=== PATIENT | female | born 1965 | race Caucasian/White ===

== ENCOUNTER 2017-10-07 05:47 | Inpatient (IN) | payer OTHER ==
[2017-10-07] MEDS ORDERED: dilTIAZem HCL 50 MG/10 ML - 10 ML VIAL IVPUSH ONE (06:03)
[2017-10-07] MEDS ORDERED: dilTIAZem HCL 125 MG/25 ML - 25 ML VIAL ONE (06:04)
--- NOTE | 2017-10-07 06:06 | PDOC ---
History of Present Illness - History of Present Illness Initial Comments: 10/07/17 06:06 Ms. Jesus Alcantar is a 52 yo female w/ pmh of afib who presents via EMS after she woke up with palpitations and 10/10 chest pain earlier this morning. She called EMS who attempted to give cardizem in the field but was unable to obtain a line. Patient was given 10 IV in ED during evaluation. The patient denies shortness of breath, headache and dizziness. Denies fever, chills, nausea, vomit, diarrhea and constipation. Denies dysuria, frequency, urgency and hematuria. Allergies: NKDA <Baljit Talbert - Last Filed: 10/07/17 06:26> <Kelly Hogue - Last Filed: 10/07/17 07:04> - General Stated Complaint: PALPITATIONS Time Seen by Provider: 10/07/17 06:03 Past History <Baljit Talbert - Last Filed: 10/07/17 06:26> <Kelly Hogue - Last Filed: 10/07/17 07:04> - Past Medical History Allergies/Adverse Reactions: Allergies Allergy/AdvReac Type Severity Reaction Status Date / Time No Known Allergies Allergy Verified 10/07/17 06:29 Home Medications: Ambulatory Orders Unobtainable [Unobtainable] 10/07/17 Review of Systems - Review of Systems Comments:: 10/07/17 06:09 GENERAL/CONSTITUTIONAL: No fever or chills. No weakness. HEAD, EYES, EARS, NOSE AND THROAT: +Headache earlier today. No change in vision. No ear pain or discharge. No sore throat. CARDIOVASCULAR: +Midline chest pain as described without shortness of breath RESPIRATORY: No cough, wheezing, or hemoptysis. GASTROINTESTINAL: No nausea, vomiting, diarrhea or constipation. GENITOURINARY: No dysuria, frequency, or change in urination. MUSCULOSKELETAL: No joint or muscle swelling or pain. No neck or back pain. SKIN: No rash NEUROLOGIC: No vertigo, loss of consciousness, or change in strength/sensation. ENDOCRINE: No increased thirst. No abnormal weight change HEMATOLOGIC/LYMPHATIC: No anemia, easy bleeding, or history of blood clots. ALLERGIC/IMMUNOLOGIC: No hives or skin allergy. <Baljit Talbert - Last Filed: 10/07/17 06:26> *Physical Exam - Physical Exam Comments: 10/07/17 06:09 GENERAL: Awake, alert, and fully oriented, in no acute distress HEAD: No signs of trauma, normocephalic, atraumatic EYES: PERRLA, EOMI, sclera anicteric, conjunctiva clear ENT: Auricles normal inspection, hearing grossly normal, nares patent, oropharynx clear without exudates. Moist mucosa NECK: Normal ROM, supple, no lymphadenopathy, JVD, or masses LUNGS: +Cough appreciated, coarse left lung sounds, reproducible midline chest pain with palpation - speaks full sentences HEART: Regular rate and rhythm, normal S1 and S2, no murmurs, rubs or gallops, peripheral pulses normal and equal bilaterally. ABDOMEN: Soft, nontender, normoactive bowel sounds. No guarding, no rebound. No masses EXTREMITIES: Normal inspection, Normal range of motion, no edema. No clubbing or cyanosis. NEUROLOGICAL: Cranial nerves II through XII grossly intact. Normal speech, normal gait, no focal sensorimotor deficits SKIN: Warm, Dry, normal turgor, no rashes or lesions noted. <Baljit Talbert - Last Filed: 10/07/17 06:26> - Vital Signs Last Vital Signs Temp Pulse Resp BP Pulse Ox 97.8 F 85 21 126/82 100 10/07/17 05:48 10/07/17 06:57 10/07/17 06:57 10/07/17 06:57 10/07/17 06:57 <Kelly Hogue - Last Filed: 10/07/17 07:04> ED Treatment Course - LABORATORY CBC & Chemistry Diagram: 10/07/17 06:18 10/07/17 06:18 - ADDITIONAL ORDERS Additional order review: Laboratory Results 10/07/17 06:18 PT with INR 12.60 H INR 1.12 10/07/17 06:18 RBC 4.49 MCV 88.0 MCHC 34.3 RDW 12.6 MPV 9.6 Neutrophils % 80.3 Lymphocytes % 12.1 Monocytes % 6.0 Eosinophils % 1.2 Basophils % 0.4 - RADIOLOGY Radiology Studies Ordered: Category Date Time Status CHEST X-RAY PORTABLE* [RAD] Stat Radiology 10/07/17 06:05 Taken <Kelly Hogue - Last Filed: 10/07/17 07:04> Medical Decision Making - Medical Decision Making 10/07/17 06:26 Ms. Lee is a 52 yo female w/ known afib BIBA for chest pain with palpitations. Patient reports some relief from symptoms following 10mg IV Diltiazem. Cardiac workup begun. 10/07/17 06:52 Patient signed out to Dr. Wan for further evaluation. <Baljit Talbert - Last Filed: 10/07/17 06:26> *DC/Admit/Observation/Transfer <Baljit Talbert - Last Filed: 10/07/17 06:26> <Kelly Hogue - Last Filed: 10/07/17 07:04> Diagnosis at time of Disposition: Rapid atrial fibrillation
[2017-10-07 06:17] VITALS: BMI 25.6
[2017-10-07 06:31] LABS: BASO % 0.4 % (0-2.0); EOS % 1.2 % (0-4.5); HEMATOCRIT 39.5 % (32.4-45.2); HEMOGLOBIN 13.5 GM/dL (10.7-15.3); LYMPH % 12.1 % (8-40); MCH 30.2 pg (25.7-33.7); MCHC 34.3 g/dl (32.0-36.0); MEAN PLT VOLUME 9.6 fl (7.5-11.1); NEUT % 80.3 % (42.8-82.8); PLATELET COUNT 202 K/MM3 (134-434); RBC 4.49 M/mm3 (3.60-5.2); RDW 12.6 % (11.6-15.6); WHITE BLOOD COUNT 13.4 K/mm3 (4.0-10.0)
[2017-10-07] MEDS ORDERED: dilTIAZem HCL 60 MG TABLET (FP) PO ONE (06:58)
[2017-10-07 07:00] LABS: INR 1.12 (0.82-1.09); PROTHROMBIN TIME (PATIENT) 12.6 SEC (9.98-11.88)
[2017-10-07] MEDS ORDERED: dilTIAZem HCL 60 MG TABLET (FP) ONE (07:00)
[2017-10-07] MEDS ORDERED: ACETAMINOPHEN 1000 MG/100 ML VIAL (NON FORMULARY) IVPB ONE (07:03)
[2017-10-07] MEDS ORDERED: ACETAMINOPHEN INJECTION 100 ML IVPB ONE (07:04)
--- NOTE | 2017-10-07 07:06 | PDOC ---
Attending Attestation - Resident Resident Name: Baljit Talbert - ED Attending Attestation I have performed the following: I have examined & evaluated the patient, The case was reviewed & discussed with the resident, I agree w/resident's findings & plan - HPI HPI: 10/08/17 03:04 Pt comes with CP - Physicial Exam PE: 10/07/17 07:04 Pt comes with rapid atrial fibrillation. She has a hx of open heart surgery ,but she has no idea what it was for. Years ago and done in [place]. - Medical Decision Making 10/07/17 07:05 Pt was rate controlled in the ER with PO and IV diltiazem. She will be admitted to telemetry once her labs and CXR are back. Heart Score/ECG Review - Electrocardiogram EKG: Non specific repolarization disturbance (Pt has rapid afib pattern)
[2017-10-07 07:11] LABS: ALBUMIN 3.7 g/dl (3.4-5.0); ANION GAP 10 (8-16); BILIRUBIN,TOTAL 0.8 mg/dL (0.2-1.0); BLOOD UREA NITROGEN 12 mg/dL (7-18); CALCIUM 8.4 mg/dL (8.5-10.1); CHLORIDE 107 mmol/L (98-107); CO2 23 mmol/L (21-32); CREATININE 0.7 mg/dL (0.55-1.02); GLUCOSE,RANDOM 125 mg/dL (74-106); SGPT/ALT 52 U/L (12-78); SODIUM 140 mmol/L (136-145); TOT PROT 7.8 g/dl (6.4-8.2)
[2017-10-07 07:14] LABS: ALK PHOS 107 U/L (45-117)
[2017-10-07 07:19] LABS: POTASSIUM 4.4 mmol/L (3.5-5.1); SGOT/AST 34 U/L (15-37)
--- NOTE | 2017-10-07 07:25 | PDOC ---
*Physical Exam - Vital Signs Last Vital Signs Temp Pulse Resp BP Pulse Ox 100.0 F H 85 21 126/82 100 10/07/17 07:04 10/07/17 06:57 10/07/17 06:57 10/07/17 06:57 10/07/17 06:57 10/07/17 07:07 52 YOF with h/o known paroxysmal A-fib, thoracotomy, p/w CP, palpitations, given cardizem IV and PO on arrival to the ED. ED Treatment Course - LABORATORY CBC & Chemistry Diagram: 10/07/17 06:18 10/07/17 06:18 - ADDITIONAL ORDERS Additional order review: Laboratory Results 10/07/17 06:18 PT with INR 12.60 H INR 1.12 10/07/17 06:18 RBC 4.49 MCV 88.0 MCHC 34.3 RDW 12.6 MPV 9.6 Neutrophils % 80.3 Lymphocytes % 12.1 Monocytes % 6.0 Eosinophils % 1.2 Basophils % 0.4 Medical Decision Making - Medical Decision Making 10/07/17 08:15 Rectal temp was found to be 101.5 (notably while Ofirmev was 1/2 finished). Septic workup done, 1 L NS started (Pt states did not have fluids yet). HR 96 on monitor, possible flutter waves. Repeat EKG showed A-flutter. 10/07/17 08:58 Lactate is 2.3, CXR showing congestive changes but patient does not appear volume overloaded. *DC/Admit/Observation/Transfer Diagnosis at time of Disposition: Rapid atrial fibrillation Atrial flutter Qualifiers: Atrial flutter type: unspecified Qualified Code(s): I48.92 - Unspecified atrial flutter Sepsis Qualifiers: Sepsis type: sepsis due to unspecified organism Qualified Code(s): A41.9 - Sepsis, unspecified organism - Discharge Dispostion Condition at time of disposition: Guarded Admit: Yes - Referrals - Patient Instructions - Post Discharge Activity
[2017-10-07] MEDS ORDERED: SODIUM CHLORIDE 1,000 ML IV STA (07:36)
[2017-10-07 08:20] LABS: VENOUS PC02 34.4 mmHg (38-52); VENOUS PH 7.4 (7.32-7.42)
[2017-10-07 08:24] LABS: URINE APPEARANCE CLEAR; URINE BILIRUBIN NEGATIVE (NEGATIVE); URINE BLOOD NEGATIVE (NEGATIVE); URINE COLOR STRAW; URINE GLUCOSE (UA) NEGATIVE (NEGATIVE); URINE KETONE NEGATIVE (NEGATIVE); URINE NITRITE NEGATIVE (NEGATIVE); URINE PROTEIN NEGATIVE (NEGATIVE); URINE UROBILINOGEN NEGATIVE mg/dL (0.2-1.0)
[2017-10-07 08:33] LABS: INR 1.14 (0.82-1.09); PROTHROMBIN TIME (PATIENT) 12.9 SEC (9.98-11.88)
[2017-10-07 08:47] LABS: URINE LEUK ESTERASE 1+ (NEGATIVE)
[2017-10-07 08:49] LABS: EPI CELLS RARE /HPF (FEW); URINE MUCUS RARE
[2017-10-07] MEDS ORDERED: VANCOMYCIN 1 GRAM (PRE-DOCKED) 1,000 MG/250 ML BAG IVPB ONE ×2 (09:02→09:14)
[2017-10-07] MEDS ORDERED: PIPERACIL/TAZOB 3.375 GM 3.375 GM/50 ML PREMIX IVPB ONE (09:03)
[2017-10-07] MEDS ORDERED: PIPERACILLIN/TAZOB 3.375 GM 3.375 GM/50 ML BAG IVPB ONE (09:48)
[2017-10-07] MEDS ORDERED: ACETAMINOPHEN 325 MG TABLET (FP) PO PRN (11:51)
--- NOTE | 2017-10-07 12:04 | HP ---
CHIEF COMPLAINT: palpitations PCP: In the [facility] HISTORY OF PRESENT ILLNESS: This is a 52yo woman with PMH valve replacement 2015 at [place] who is visting from the DR that presented for care after experiencing palpitations and chest pain while asleep. She described the pain as a pounding rated 8/10. She denies dizziness, SOB, headaches, cough, fevers, abdominal pain, nausea or vomiting. ER course was notable for: (1) HR-158 (2) DIltiazem IV (3) Lactate 2.8/WBC13.4 Recent Travel: came from 08/12 PAST MEDICAL HISTORY: see HPI PAST SURGICAL HISTORY: see HPI Social History: Smoking: denies Alcohol: denies Drugs: denies Family History: does not know her family's medical history Allergies No Known Allergies Allergy (Verified 10/07/17 06:29) HOME MEDICATIONS: Home Medications Medication Instructions Recorded Unobtainable [Unobtainable] 10/07/17 REVIEW OF SYSTEMS CONSTITUTIONAL: Absent: fever, chills, diaphoresis, generalized weakness, malaise, loss of appetite, weight change HEENT: Absent: rhinorrhea, nasal congestion, throat pain, throat swelling, difficulty swallowing, mouth swelling, ear pain, eye pain, visual changes CARDIOVASCULAR: Present- chest pain, palpitations Absent: syncope, irregular heart rate, lightheadedness, peripheral edema RESPIRATORY: Absent: cough, shortness of breath, dyspnea with exertion, orthopnea, wheezing, stridor, hemoptysis GASTROINTESTINAL: Absent: abdominal pain, abdominal distension, nausea, vomiting, diarrhea, constipation, melena, hematochezia GENITOURINARY: Absent: dysuria, frequency, urgency, hesitancy, hematuria, flank pain, genital pain MUSCULOSKELETAL: Absent: myalgia, arthralgia, joint swelling, back pain, neck pain SKIN: Absent: rash, itching, pallor HEMATOLOGIC/IMMUNOLOGIC: Absent: easy bleeding, easy bruising, lymphadenopathy, frequent infections ENDOCRINE: Absent: unexplained weight gain, unexplained weight loss, heat intolerance, cold intolerance NEUROLOGIC: Absent: headache, focal weakness or paresthesias, dizziness, unsteady gait, seizure, mental status changes, bladder or bowel incontinence PSYCHIATRIC: Absent: anxiety, depression, suicidal or homicidal ideation, hallucinations. PHYSICAL EXAMINATION Vital Signs - 24 hr 10/07/17 10/07/17 10/07/17 05:48 06:05 06:57 Temperature 97.8 F Pulse Rate 159 H Pulse Rate [ 85 Left Radial] Respiratory 24 21 Rate Blood Pressure 134/101 Blood Pressure 121/90 126/82 [Left Arm] O2 Sat by Pulse 98 100 Oximetry (%) 10/07/17 10/07/17 07:04 10:57 Temperature 100.0 F H 99 F Pulse Rate Pulse Rate [ 82 Left Radial] Respiratory Rate Blood Pressure Blood Pressure 107/67 [Left Arm] O2 Sat by Pulse 100 Oximetry (%) GENERAL: Awake, alert, and fully oriented, in no acute distress. HEAD: Normal with no signs of trauma. EYES: Pupils equal, round and reactive to light, extraocular movements intact, sclera anicteric, conjunctiva clear. No lid lag. EARS, NOSE, THROAT: Ears normal, nares patent, oropharynx clear without exudates. Moist mucous membranes. NECK: Normal range of motion, supple without lymphadenopathy, JVD, or masses. LUNGS: Breath sounds equal, clear to auscultation bilaterally. No wheezes, and no crackles. No accessory muscle use. HEART: Regular rate and rhythm, normal S1 and S2 without murmur, rub or gallop. ABDOMEN: Soft, nontender, not distended, normoactive bowel sounds, no guarding, no rebound, no masses. No hepatomegaly or splenomegaly. MUSCULOSKELETAL: Normal range of motion at all joints. No bony deformities or tenderness. No CVA tenderness. UPPER EXTREMITIES: 2+ pulses, warm, well-perfused. No cyanosis. No clubbing. No peripheral edema. LOWER EXTREMITIES: 2+ pulses, warm, well-perfused. No calf tenderness. No peripheral edema. NEUROLOGICAL: Cranial nerves II-XII intact. Normal speech. Normal gait. PSYCHIATRIC: Cooperative. Good eye contact. Appropriate mood and affect. SKIN: Warm, dry, normal turgor, no rashes or lesions noted, normal capillary refill. Laboratory Results - last 24 hr 10/07/17 10/07/17 10/07/17 06:18 06:18 06:18 WBC 13.4 H RBC 4.49 Hgb 13.5 Hct 39.5 MCV 88.0 MCH 30.2 MCHC 34.3 RDW 12.6 Plt Count 202 MPV 9.6 Neutrophils % 80.3 Lymphocytes % 12.1 Monocytes % 6.0 Eosinophils % 1.2 Basophils % 0.4 PT with INR INR PTT (Actin FS) 29.4 VBG pH POC VBG pCO2 POC VBG pO2 Mixed VBG HCO3 Sodium 140 Potassium 4.4 Chloride 107 Carbon Dioxide 23 Anion Gap 10 BUN 12 Creatinine 0.7 Creat Clearance w eGFR > 60 Random Glucose 125 H Lactic Acid Calcium 8.4 L Total Bilirubin 0.8 AST 34 ALT 52 Alkaline Phosphatase 107 Creatine Kinase 103 Troponin I < 0.02 B-Natriuretic Peptide Total Protein 7.8 Albumin 3.7 Urine Color Urine Appearance Urine pH Ur Specific [place] Urine Protein Urine Glucose (UA) Urine Ketones Urine Blood Urine Nitrite Urine Bilirubin Urine Urobilinogen Ur Leukocyte Esterase Urine WBC (Auto) Urine RBC (Auto) Ur Epithelial Cells Urine Mucus Blood Type Antibody Screen 10/07/17 10/07/17 10/07/17 06:18 06:18 08:00 WBC RBC Hgb Hct MCV MCH MCHC RDW Plt Count MPV Neutrophils % Lymphocytes % Monocytes % Eosinophils % Basophils % PT with INR 12.60 H 12.90 H INR 1.12 1.14 PTT (Actin FS) VBG pH POC VBG pCO2 POC VBG pO2 Mixed VBG HCO3 Sodium Potassium Chloride Carbon Dioxide Anion Gap BUN Creatinine Creat Clearance w eGFR Random Glucose Lactic Acid Calcium Total Bilirubin AST ALT Alkaline Phosphatase Creatine Kinase Troponin I B-Natriuretic Peptide 2048.66 H Total Protein Albumin Urine Color Urine Appearance Urine pH Ur Specific [place] Urine Protein Urine Glucose (UA) Urine Ketones Urine Blood Urine Nitrite Urine Bilirubin Urine Urobilinogen Ur Leukocyte Esterase Urine WBC (Auto) Urine RBC (Auto) Ur Epithelial Cells Urine Mucus Blood Type Antibody Screen 10/07/17 10/07/17 10/07/17 08:00 08:00 08:10 WBC RBC Hgb Hct MCV MCH MCHC RDW Plt Count MPV Neutrophils % Lymphocytes % Monocytes % Eosinophils % Basophils % PT with INR INR PTT (Actin FS) VBG pH 7.40 POC VBG pCO2 34.4 L POC VBG pO2 68.0 H Mixed VBG HCO3 20.7 Sodium Potassium Chloride Carbon Dioxide Anion Gap BUN Creatinine Creat Clearance w eGFR Random Glucose Lactic Acid Calcium Total Bilirubin AST ALT Alkaline Phosphatase Creatine Kinase Troponin I B-Natriuretic Peptide Total Protein Albumin Urine Color Straw Urine Appearance Clear Urine pH 5.0 Ur Specific [place] 1.009 Urine Protein Negative Urine Glucose (UA) Negative Urine Ketones Negative Urine Blood Negative Urine Nitrite Negative Urine Bilirubin Negative Urine Urobilinogen Negative Ur Leukocyte Esterase 1+ H Urine WBC (Auto) 2 Urine RBC (Auto) 1 Ur Epithelial Cells Rare Urine Mucus Rare Blood Type A NEGATIVE Antibody Screen Negative 10/07/17 10/07/17 08:10 10:00 WBC RBC Hgb Hct MCV MCH MCHC RDW Plt Count MPV Neutrophils % Lymphocytes % Monocytes % Eosinophils % Basophils % PT with INR INR PTT (Actin FS) VBG pH POC VBG pCO2 POC VBG pO2 Mixed VBG HCO3 Sodium Potassium Chloride Carbon Dioxide Anion Gap BUN Creatinine Creat Clearance w eGFR Random Glucose Lactic Acid 2.3 H* 1.7 Calcium Total Bilirubin AST ALT Alkaline Phosphatase Creatine Kinase Troponin I B-Natriuretic Peptide Total Protein Albumin Urine Color Urine Appearance Urine pH Ur Specific [place] Urine Protein Urine Glucose (UA) Urine Ketones Urine Blood Urine Nitrite Urine Bilirubin Urine Urobilinogen Ur Leukocyte Esterase Urine WBC (Auto) Urine RBC (Auto) Ur Epithelial Cells Urine Mucus Blood Type Antibody Screen ASSESSMENT/PLAN: A: 52 yo woman with PMH valve replacement now with new onset aflutter, P: aflutter - cardizem cd 120 - Lovenox 60mg daily - cards consult - telemetry - Diltiazem IV prn- rate control Chest pain - r/o ACS - ASA - telemetry - trend troponins - am lipid panel - Cards Consult Leukocytosis - likely reactive - monitor off abx - influenza testing pending - urine antigens F/E/N - Low Na diet - replete prn PPX - OOB - Lovenox Dispo- requires observation of acute medical condition Visit type - Emergency Visit Emergency Visit: Yes ED Registration Date: 10/07/17 Care time: The patient presented to the Emergency Department on the above date and was hospitalized for further evaluation of their emergent condition. - New Patient This patient is new to me today: Yes Date on this admission: 10/09/17 - Critical Care Critical Care patient: No
--- NOTE | 2017-10-07 16:52 | EKG ---
Test Reason : Blood Pressure : / mmHG Vent. Rate : 106 BPM Atrial Rate : 394 BPM P-R Int : 000 ms QRS Dur : 074 ms QT Int : 356 ms P-R-T Axes : 000 072 -70 degrees QTc Int : 472 ms ATRIAL FLUTTER WITH VARIABLE A-V BLOCK ABNORMAL ECG NO PREVIOUS ECGS AVAILABLE Confirmed by SHELBY FINN, ANDRAE ([id number]) on 10/07/2017 4:52:18 PM Referred By: Confirmed By:ANDRAE RYAN MD
[2017-10-07] MEDS ORDERED: ENOXAPARIN NA (PORCINE) 60 MG/0.6 ML DISP.SYRIN SQ ONE (21:02)
[2017-10-07] MEDS: ENOXAPARIN NA (PORCINE) 60 MG/0.6 ML DISP.SYRIN SQ SCH (21:11)
[2017-10-07] MEDS ORDERED: HEPARIN NA (PORCINE) 5,000 UNITS/ML 1ML VIAL SQ SCH (22:00)
[2017-10-08 06:55] LABS: BASO % 0.7 % (0-2.0); EOS % 4.7 % (0-4.5); HEMATOCRIT 35.7 % (32.4-45.2); HEMOGLOBIN 12.2 GM/dL (10.7-15.3); LYMPH % 28.4 % (8-40); MCH 30.4 pg (25.7-33.7); MCHC 34.3 g/dl (32.0-36.0); MEAN CELL VOLUME 88.6 fl (80-96); MEAN PLT VOLUME 9.6 fl (7.5-11.1); NEUT % 57.2 % (42.8-82.8); PLATELET COUNT 170 K/MM3 (134-434); RBC 4.03 M/mm3 (3.60-5.2); RDW 12.6 % (11.6-15.6); WHITE BLOOD COUNT 7.8 K/mm3 (4.0-10.0)
[2017-10-08 07:18] LABS: ALBUMIN 3.3 g/dl (3.4-5.0); ANION GAP 8 (8-16); BLOOD UREA NITROGEN 10 mg/dL (7-18); CALCIUM 7.9 mg/dL (8.5-10.1); CHLORIDE 108 mmol/L (98-107); CO2 25 mmol/L (21-32); GLUCOSE,RANDOM 97 mg/dL (74-106); POTASSIUM 3.8 mmol/L (3.5-5.1); SODIUM 141 mmol/L (136-145)
[2017-10-08 07:21] LABS: ALK PHOS 90 U/L (45-117); BILIRUBIN,TOTAL 0.8 mg/dL (0.2-1.0); CHOLESTEROL 157 mg/dL (50-200); CREATININE 0.7 mg/dL (0.55-1.02); HDL CHOLESTEROL 35 mg/dL (40-60); LDL CHOLESTEROL (ONLY SJRH) 114 mg/dL (5-100); SGOT/AST 18 U/L (15-37); SGPT/ALT 38 U/L (12-78); TOT PROT 6.8 g/dl (6.4-8.2); TRIGLYCERIDES 106 mg/dL (35-160)
[2017-10-08] MEDS ORDERED: ASPIRIN COATED 81 MG TABLET.EC PO SCH (10:00)
[2017-10-08] MEDS: ENOXAPARIN NA (PORCINE) 60 MG/0.6 ML DISP.SYRIN SQ SCH (10:13)
--- NOTE | 2017-10-08 12:42 | CON.CARD ---
Consult Consult Specialty:: Cardiology Referred by:: Hospitalist Reason for Consultation:: Cardiac evaluation - History of Present Illness Chief Complaint: Palpitation and chest pain History of Present Illness: Patient is a 52 year old female of descent with underlying history of open heart surgery last year (patient states valvular surgery at a hospital in [place], but could not specify) who presents with palpitations and chest pain. ECG demonstrates atrial fibrillation with variable ventricular response. She denies shortness of breath. She denies paroxysmal nocturnal dyspnea or orthopnea. She denies fever or chills. She denies headache or lightheadedness. She also states history of hypertension for which she takes medication, but also could not specify the name of the mediation. Medical record indicates Digoxin as her home medication. - History Source History Provided By: Patient, Medical Record Limitations to Obtaining History: Poor Historian - Past Medical History Cardio/Vascular: Yes: HTN, Other (Valvular heart disease) Endocrine: No: Diabetes Mellitus - Past Surgical History Past Surgical History: Yes: Valve Replacement - Alcohol/Substance Use Hx Alcohol Use: No History of Substance Use: reports: None - Smoking History Smoking history: Never smoked Have you smoked in the past 12 months: No Home Medications - Allergies Allergies/Adverse Reactions: Allergies Allergy/AdvReac Type Severity Reaction Status Date / Time No Known Allergies Allergy Verified 10/07/17 06:29 - Home Medications Home Medications: Ambulatory Orders Digoxin [Lanoxin -] 0.25 mg PO BID 10/07/17 Family Disease History - Family Disease History Family History: Denies Review of Systems - Review of Systems Constitutional: denies: Chills, Fever Cardiovascular: reports: Chest Pain, Palpitations. denies: Shortness of Breath Respiratory: denies: Cough, Hemoptysis, Orthopnea, PND, SOB, SOB on Exertion, Wheezing Gastrointestinal: denies: Abdominal Pain, Constipation, Diarrhea, Melena, Nausea , Rectal Bleeding, Vomiting Genitourinary: denies: Dysuria, Hematuria Neurological: denies: Dizziness, Headache, Seizure, Syncope Vital Signs: Vital Signs Temperature 98.2 F 10/08/17 09:40 Pulse Rate 107 H 10/08/17 10:18 Respiratory Rate 20 10/08/17 10:18 Blood Pressure 115/92 10/08/17 10:18 O2 Sat by Pulse Oximetry (%) 99 10/08/17 10:18 Eyes: Yes: PERRL HENT: Yes: Atraumatic Neck: Yes: Supple Respiratory: Yes: CTA Bilaterally Gastrointestinal: Yes: Normal Bowel Sounds, Soft. No: Tenderness Cardiovascular: Yes: Tachycardia, Pulse Irregular JVD: No Carotid Bruit: No Heart Sounds: Yes: S1, S2. No: Gallop Murmur: Yes: Systolic Murmur, Grade 1 Edema: No - Other Data Labs, Other Data: CBC, BMP 10/08/17 05:50 10/08/17 05:50 INR, PTT INR 1.14 (0.82-1.09) 10/07/17 08:00 Troponin, BNP 10/07/17 10/07/17 17:55 23:20 Troponin I 0.03 0.02 Laboratory Results - last 24 hr 10/08/17 10/08/17 05:50 05:50 WBC 7.8 D RBC 4.03 Hgb 12.2 Hct 35.7 MCV 88.6 MCH 30.4 MCHC 34.3 RDW 12.6 Plt Count 170 MPV 9.6 Neutrophils % 57.2 D Lymphocytes % 28.4 D Monocytes % 9.0 Eosinophils % 4.7 H D Basophils % 0.7 Sodium 141 Potassium 3.8 Chloride 108 H Carbon Dioxide 25 Anion Gap 8 BUN 10 Creatinine 0.7 Creat Clearance w eGFR > 60 Random Glucose 97 Calcium 7.9 L Total Bilirubin 0.8 AST 18 ALT 38 Alkaline Phosphatase 90 Total Protein 6.8 Albumin 3.3 L Triglycerides 106 Cholesterol 157 Total LDL Cholesterol 114 H HDL Cholesterol 35 L Atrial flutter with rapid ventricular response Echo: Report Reviewed Imaging - Results Chest X-ray: Report Reviewed (Large heart) EKG: Report Reviewed Problem List - Problems (1) Bioprosthetic mitral valve replacement, current hospitalization Code(s): Z95.3 - PRESENCE OF XENOGENIC HEART VALVE (2) HTN (hypertension) Code(s): I10 - ESSENTIAL (PRIMARY) HYPERTENSION Qualifiers: Hypertension type: essential hypertension Qualified Code(s): I10 - Essential (primary) hypertension (3) Hypercholesterolemia Code(s): E78.00 - PURE HYPERCHOLESTEROLEMIA, UNSPECIFIED (4) Tricuspid valve regurgitation Code(s): I07.1 - RHEUMATIC TRICUSPID INSUFFICIENCY Qualifiers: Cardiac valve disease etiology: nonrheumatic Qualified Code(s): I36.1 - Nonrheumatic tricuspid (valve) insufficiency (5) Atrial flutter Code(s): I48.92 - UNSPECIFIED ATRIAL FLUTTER Qualifiers: Atrial flutter type: unspecified Qualified Code(s): I48.92 - Unspecified atrial flutter Assessment/Plan Echocardiography (10/08/17): Normal LV systolic function, bioprosthetic mitral valve with normal function and well seated, mild MR, severe LA dilatation ( correction in report - LA volume index 56 ml/m2), moderate RA dilatation, moderate to severe TR 1. Atrial flutter with RVR, unknown duration 2. Post bioprosthetic MVR with mild mitral valve regurgitation 3. History of hypertension 4. Tricuspid valve regurgitation 5. Hypercholesterolemia PLAN: 1. Switch Lovenox to unfractionated Heparin and then she will need to be started on Coumadin therapy (keep INR 2-3). Discontinue ASA 2. Switch Cardizem to Metoprolol Tartrate and up-titrate. 3. Continue Atorvastatin 4. Consider synchronized cardioversion with MARIE once initiated on anticoagulation 5. Trend troponins 6. Transthoracic echocardiography reviewed as outlined above Further plans are to follow Noah Mccoy MD
--- NOTE | 2017-10-08 18:57 | PN ---
Physical Exam: SUBJECTIVE: Patient seen and examined. Denies chest pain, denies shortness of breath. OBJECTIVE: No chest pain Heart rate irregular 70s on clinical research monitor In no acute distress, appears more comfortable does not remember her past heart surgery, but it was done years ago in [place] , does not remember which hospital Vital Signs Period Temp Pulse Resp BP Sys/Paul Pulse Ox Last 24 Hr 98.2 F-99.6 F 82-107 16-20 94-139/58-92 97-100 GENERAL: The patient is awake, alert, and fully oriented, in no acute distress. HEAD: Normal with no signs of trauma. EYES: PERRL, extraocular movements intact, sclera anicteric, conjunctiva clear. No ptosis. ENT: Ears normal, nares patent, oropharynx clear without exudates, moist mucous membranes. NECK: Trachea midline, full range of motion, supple. LUNGS: Breath sounds equal, clear to auscultation bilaterally, no wheezes, no crackles, no accessory muscle use. HEART: previous surgery done about 1 year ago, large scar on anterior chest ABDOMEN: Soft, nontender, nondistended, normoactive bowel sounds, no guarding, no rebound, no hepatosplenomegaly, no masses. EXTREMITIES: 2+ pulses, warm, well-perfused, no edema. NEUROLOGICAL: Normal speech, gait not observed. Laboratory Results - last 24 hr 10/07/17 10/08/17 10/08/17 23:20 05:50 05:50 WBC 7.8 D RBC 4.03 Hgb 12.2 Hct 35.7 MCV 88.6 MCH 30.4 MCHC 34.3 RDW 12.6 Plt Count 170 MPV 9.6 Neutrophils % 57.2 D Lymphocytes % 28.4 D Monocytes % 9.0 Eosinophils % 4.7 H D Basophils % 0.7 Sodium 141 Potassium 3.8 Chloride 108 H Carbon Dioxide 25 Anion Gap 8 BUN 10 Creatinine 0.7 Creat Clearance w eGFR > 60 Random Glucose 97 Calcium 7.9 L Total Bilirubin 0.8 AST 18 ALT 38 Alkaline Phosphatase 90 Creatine Kinase 66 Troponin I 0.02 Total Protein 6.8 Albumin 3.3 L Triglycerides 106 Cholesterol 157 Total LDL Cholesterol 114 H HDL Cholesterol 35 L Active Medications Generic Name Dose Route Start Last Admin Trade Name Freq PRN Reason Stop Dose Admin Acetaminophen 650 mg 10/07/17 11:51 Tylenol - PO Q4H PRN PAIN OR FEVER Aspirin 81 mg 10/08/17 10:00 10/08/17 10:13 Ecotrin - PO 81 mg DAILY [facility]RY[facility] Administration Diltiazem HCl 120 mg 10/08/17 10:00 10/08/17 10:13 Cardizem Cd - PO 120 mg DAILY [facility] Administration Enoxaparin Sodium 60 mg 10/07/17 20:45 10/08/17 10:13 Lovenox - SQ 60 mg DAILY KRY[facility]AL Administration ASSESSMENT/PLAN: Patient is a 52 year old female with a significant past medical history of paroxysmal afib, thoracotomy, palpitations, recent cardiac surgery. She presents to the ED on 10/07/2017 with complaints of chest pain and palpitations. In the ED she was found to be in rapid atrial fibrillation and was given cardizem IV and PO on arrival to the ED. The patient denies shortness of breath, headache and dizziness. Denies fever, chills, nausea, vomiting, diarrhea and constipation. Imaging: Echo:LV normal, left vent.fx normal, Left atrium severely dilated, RA moderately dilated, There is a bio prostetic mitral valve. The prosthetic mitral valve is well seated. The prosthetic mitral valve appears to open well. There is mild mitral regurgitation. There is moderate to severe tricuspid regurgitation. EKG:atrial flutter with variable av block, no previous EKGs to compare Cardiology Chest pain/Rule out ACS Monitor on tele Trops negative x 3 Monitor for chest pain, shortness of breath Obtain more history from family regarding recent heart surgery if patient permits Echo shows a prostethic mitral valve EKG reviewed Cardiology following Prox. Atril Fib, chronig On Cardizem 120mg daily Anticoag as per cardiology ASA 81mg daily TSH pending Hyperlipidemia, acute Lipid panel reviewed Started on Lipitor 20mg @ hs Lactic acidosis, resolved Leukocytosis, resolved Monitor for feves Blood cultures pending F.E.N. Fluids: PO intake adequate Electrolytes: monitor Nutrition: low sodium Prophylaxis: DVT: Lovenox GI: deferred Disposition: full code. On discharge, patient will need cardiology follow up and a new PCP referral. Visit type - Emergency Visit Emergency Visit: Yes ED Registration Date: 10/07/17 Care time: The patient presented to the Emergency Department on the above date and was hospitalized for further evaluation of their emergent condition. - New Patient This patient is new to me today: Yes Date on this admission: 10/08/17 - Critical Care Critical Care patient: No - Discharge Referral Referred to [facility] Med P.C.: No
[2017-10-08] MEDS: ATORVASTATIN CA 20 MG TABLET (FP) PO SCH (21:43)
--- NOTE | 2017-10-08 23:32 | EKG ---
Test Reason : Blood Pressure : / mmHG Vent. Rate : 153 BPM Atrial Rate : 178 BPM P-R Int : 000 ms QRS Dur : 070 ms QT Int : 262 ms P-R-T Axes : 000 076 254 degrees QTc Int : 418 ms ATRIAL FIBRILLATION WITH RAPID VENTRICULAR RESPONSE ABNORMAL ECG NO PREVIOUS ECGS AVAILABLE Confirmed by EZEQUIEL IRVING MD ([id number]) on 10/08/2017 11:32:07 PM Referred By: Confirmed By:EZEQUIEL IRVING MD
[2017-10-09] MEDS ORDERED: HEPARIN NA (PORCINE) 5,000 UNITS/ML 1ML VIAL IVPUSH PRN ×2 (01:23)
[2017-10-09] MEDS: HEPARIN INFUSION - 25,000 UNITS/500 ML INFUS.BAG IVPB SCH (04:33)
[2017-10-09 07:17] LABS: BASO % 0.6 % (0-2.0); EOS % 3.9 % (0-4.5); HEMATOCRIT 38.3 % (32.4-45.2); HEMOGLOBIN 13.1 GM/dL (10.7-15.3); LYMPH % 23.4 % (8-40); MCHC 34.3 g/dl (32.0-36.0); MEAN CELL VOLUME 87.4 fl (80-96); MEAN PLT VOLUME 9.5 fl (7.5-11.1); MONO % 11.2 % (3.8-10.2); NEUT % 60.9 % (42.8-82.8); PLATELET COUNT 201 K/MM3 (134-434); RBC 4.38 M/mm3 (3.60-5.2); RDW 12.6 % (11.6-15.6); WHITE BLOOD COUNT 7.3 K/mm3 (4.0-10.0)
[2017-10-09 07:45] LABS: CHLORIDE 108 mmol/L (98-107); POTASSIUM 3.8 mmol/L (3.5-5.1); SODIUM 138 mmol/L (136-145)
[2017-10-09 08:01] LABS: ALBUMIN 3.4 g/dl (3.4-5.0); ALK PHOS 92 U/L (45-117); ANION GAP 6 (8-16); BILIRUBIN,TOTAL 1.1 mg/dL (0.2-1.0); BLOOD UREA NITROGEN 9 mg/dL (7-18); CALCIUM 8.2 mg/dL (8.5-10.1); CO2 24 mmol/L (21-32); CREATININE 0.7 mg/dL (0.55-1.02); GLUCOSE,RANDOM 113 mg/dL (74-106); MAGNESIUM 2.1 mg/dL (1.8-2.4); SGOT/AST 19 U/L (15-37); SGPT/ALT 35 U/L (12-78); TOT PROT 7.2 g/dl (6.4-8.2)
--- NOTE | 2017-10-09 09:02 | PN ---
Progress Note, Physician History of Present Illness: Palpitations and chest pain resolved with rate-control, denies dyspnea, placed on heparin gtt. - Current Medication List Current Medications: Active Medications Acetaminophen (Tylenol -) 650 mg PO Q4H PRN PRN Reason: PAIN OR FEVER Last Admin: 10/08/17 21:43 Dose: 650 mg Aspirin (Ecotrin -) 81 mg PO DAILY [facility] Last Admin: 10/08/17 10:13 Dose: 81 mg Atorvastatin Calcium (Lipitor -) 20 mg PO HS [facility] Last Admin: 10/08/17 21:43 Dose: 20 mg Heparin Sodium (Porcine) (Heparin -) 1,000 unit IVPUSH PRN PRN PRN Reason: Heparin Heparin Sodium (Porcine) (Heparin -) 5,000 unit IVPUSH PRN PRN PRN Reason: Heparin Heparin Sodium/Dextrose (Heparin Infusion -) 25,000 units in 500 mls @ 20 mls/ hr IVPB TITR KRYSTAL; 1,000 UNITS/HR PRN Reason: Protocol Last Admin: 10/09/17 04:33 Dose: 1,000 units/hr, 20 mls/hr Metoprolol Tartrate (Lopressor -) 50 mg PO BID [facility] - Objective Vital Signs: Vital Signs Temperature 98.4 F 10/09/17 06:31 Pulse Rate 85 10/09/17 06:31 Respiratory Rate 18 10/09/17 06:31 Blood Pressure 112/64 10/09/17 06:31 O2 Sat by Pulse Oximetry (%) 98 10/08/17 21:00 Constitutional: Yes: No Distress, Calm, Thin Neck: Yes: Supple Cardiovascular: Yes: Tachycardia, Pulse Irregular, Murmur (2/6 SM) Respiratory: Yes: Regular, CTA Bilaterally Gastrointestinal: Yes: Normal Bowel Sounds, Soft Edema: No Labs: CBC, BMP 10/09/17 06:41 10/09/17 06:41 INR, PTT INR 1.14 (0.82-1.09) 10/07/17 08:00 - ....Imaging EKG: Report Reviewed (Afib with RVR) Problem List - Problems (1) Rheumatic heart disease Code(s): I09.9 - RHEUMATIC HEART DISEASE, UNSPECIFIED (2) Atrial flutter Code(s): I48.92 - UNSPECIFIED ATRIAL FLUTTER Qualifiers: Atrial flutter type: unspecified Qualified Code(s): I48.92 - Unspecified atrial flutter (3) Bioprosthetic mitral valve replacement, current hospitalization Code(s): Z95.3 - PRESENCE OF XENOGENIC HEART VALVE (4) HTN (hypertension) Code(s): I10 - ESSENTIAL (PRIMARY) HYPERTENSION Qualifiers: Hypertension type: essential hypertension Qualified Code(s): I10 - Essential (primary) hypertension (5) Hypercholesterolemia Code(s): E78.00 - PURE HYPERCHOLESTEROLEMIA, UNSPECIFIED (6) Rapid atrial fibrillation Code(s): I48.91 - UNSPECIFIED ATRIAL FIBRILLATION (7) Tricuspid valve regurgitation Code(s): I07.1 - RHEUMATIC TRICUSPID INSUFFICIENCY Qualifiers: Cardiac valve disease etiology: rheumatic Qualified Code(s): I07.1 - Rheumatic tricuspid insufficiency Assessment/Plan Echocardiography (10/08/17): Normal LV systolic function, bioprosthetic mitral valve with normal function and well seated, mild MR, severe LA dilatation ( correction in report - LA volume index 56 ml/m2), moderate RA dilatation, moderate to severe TR 1. Atrial flutter/fibrillation with RVR 2. 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 Hypertension 4. Tricuspid valve regurgitation 5. Hypercholesterolemia PLAN: 1. Heparin gtt -> Coumadin therapy (keep INR 2-3) 2. Switch Cardizem to Metoprolol Tartrate and up-titrate. 3. Continue Atorvastatin 20 qhs 4. Consider synchronized cardioversion with MARIE once initiated on anticoagulation 5. Troponins negative
[2017-10-09] MEDS: METOPROLOL TARTRATE 50 MG TABLET (FP) PO SCH ×2 (09:38→22:11)
[2017-10-09 09:39] LABS: INR 1.18 (0.82-1.09); PROTHROMBIN TIME (PATIENT) 13.3 SEC (9.98-11.88)
[2017-10-09] MEDS ORDERED: PIPERACIL/TAZOB 3.375 GM 3.375 GM/50 ML PREMIX IVPB ONE (11:19)
--- NOTE | 2017-10-09 11:20 | PN ---
Physical Exam: SUBJECTIVE: Patient seen and examined, states she felt flushed overnight. Denies chest pain or shortness of breath OBJECTIVE: Fevers 101F overnight wit short spurts of rapid heart rate overnight 140s-170s, wbc stable Echo shoes prosthetic valve (porcine) On heparin drip with Coumadin bridge Consulted Dr. Betancourt who recommended Zosyn and Vanco now: bc and uc to be collected Dr. Betancourt to see patient today Lactic acid now, lungs clear Patient granted me permission to speak to her to gather more information (on where her surgery was, as she does not remember), call placed to her Divya [phone], no voicemail left. Will re-attempt later. Vital Signs Period Temp Pulse Resp BP Sys/Paul Pulse Ox Last 24 Hr 98.0 F-101 F 82-100 18-20 94-139/58-86 97-100 GENERAL: The patient is awake, alert, and fully oriented, in no acute distress. HEAD: Normal with no signs of trauma. EYES: PERRL, extraocular movements intact, sclera anicteric, conjunctiva clear. No ptosis. ENT: Ears normal, nares patent, oropharynx clear without exudates, moist mucous membranes. NECK: Trachea midline, full range of motion, supple. LUNGS: Breath sounds equal, clear to auscultation bilaterally, no wheezes, no crackles, no accessory muscle use. HEART: previous surgery done about 1 year ago, large scar on anterior chest, does not recall where surgery was performed, called @ phone no. on file , will try later, will not leave VM ABDOMEN: Soft, nontender, nondistended, normoactive bowel sounds, no guarding, no rebound, no hepatosplenomegaly, no masses. EXTREMITIES: 2+ pulses, warm, well-perfused, no edema. NEUROLOGICAL: Normal speech, gait not observed. Laboratory Results - last 24 hr 10/09/17 10/09/17 10/09/17 06:41 06:41 08:20 WBC 7.3 RBC 4.38 Hgb 13.1 Hct 38.3 MCV 87.4 MCH 30.0 MCHC 34.3 RDW 12.6 Plt Count 201 MPV 9.5 Neutrophils % 60.9 Lymphocytes % 23.4 Monocytes % 11.2 H Eosinophils % 3.9 Basophils % 0.6 PT with INR INR PTT (Actin FS) 48.5 H D Sodium 138 Potassium 3.8 Chloride 108 H Carbon Dioxide 24 Anion Gap 6 L BUN 9 Creatinine 0.7 Creat Clearance w eGFR > 60 Random Glucose 113 H Calcium 8.2 L Magnesium 2.1 Total Bilirubin 1.1 H D AST 19 ALT 35 Alkaline Phosphatase 92 Total Protein 7.2 Albumin 3.4 TSH 2.35 10/09/17 08:20 WBC RBC Hgb Hct MCV MCH MCHC RDW Plt Count MPV Neutrophils % Lymphocytes % Monocytes % Eosinophils % Basophils % PT with INR 13.30 H INR 1.18 H PTT (Actin FS) Sodium Potassium Chloride Carbon Dioxide Anion Gap BUN Creatinine Creat Clearance w eGFR Random Glucose Calcium Magnesium Total Bilirubin AST ALT Alkaline Phosphatase Total Protein Albumin TSH Active Medications Generic Name Dose Route Start Last Admin Trade Name Freq PRN Reason Stop Dose Admin Acetaminophen 650 mg 10/07/17 11:51 10/08/17 21:43 Tylenol - PO 650 mg Q4H PRN Administration PAIN OR FEVER Atorvastatin Calcium 20 mg 10/08/17 22:00 10/08/17 21:43 Lipitor - PO 20 mg HS KRYSTAL Administration Heparin Sodium (Porcine) 1,000 unit 10/09/17 01:23 Heparin - IVPUSH PRN PRN Heparin Heparin Sodium (Porcine) 5,000 unit 10/09/17 01:23 Heparin - IVPUSH PRN PRN Heparin Heparin Sodium/Dextrose 25,000 units in 500 mls @ 20 mls/hr 10/09/17 01:30 04:33 Heparin Infusion - IVPB 1,000 units/hr TITR KRYSTAL 20 mls/hr Protocol Administration 1,000 UNITS/HR Metoprolol Tartrate 50 mg 10/09/17 10:00 10/09/17 09:38 Lopressor - PO 50 mg BID [facility]RYSTAL Administration Piperacillin/Tazobactam/Dextrose 3.375 gm 10/09/17 11:19 Zosyn 3.375gm Ivpb (Premix) IVPB 10/09/17 11:20 ONCE ONE Warfarin Sodium 5 mg 10/09/17 18:00 Coumadin - PO DAILY@1800 [facility] ASSESSMENT/PLAN: Patient is a 52 year old female with a significant past medical history of paroxysmal afib, thoracotomy, palpitations, recent cardiac surgery in a [facility] a year ago (patient does not remember which hospital). She presents to the ED on 10/07/2017 with complaints of chest pain 10/10 and palpitations. In the ED she was found to be in rapid atrial fibrillation and was given cardizem IV and PO. Imaging: Echo:LV normal, left vent.fx normal, Left atrium severely dilated, RA moderately dilated, There is a bio prosthetic mitral valve. The prosthetic mitral valve is well seated. The prosthetic mitral valve appears to open well. There is mild mitral regurgitation. There is moderate to severe tricuspid regurgitation. EKG:atrial flutter with variable av block, no previous EKGs to compare Cardiology Chest pain/Rule out ACS Denies chest pain, trops negative x 3, echo as above Monitor on tele, had short episodes of rapid afib overnight, also had a fever 101F overnight Attempting to obtain past surgical report, pt does not remember hospital, am attempting to reach Echo shows a prosthetic mitral valve EKG reviewed Cardiology following Prox. Atril Fib, acute on chronic Possible MARIE for cardioversion attempt as per cardiology Started on Heparin drip overnight to coumadin bridge Will need ongoing teaching on INR monitoring outpatient ASA 81mg ID: Fevers, of unknown source Patient has a prosthetic mitral valve Cover empirically for possible infective prosthetic valve Blood and urine cultures ordered Zosyn and Vanco ordered Discussed with ID Repeat lactic acid Blood cultures pending Hyperlipidemia, acute Lipid panel reviewed Started on Lipitor 20mg @ hs F.E.N. Fluids: PO intake adequate Electrolytes: monitor Nutrition: low sodium Prophylaxis: DVT: heparin drip to coumadin bridge GI: deferred Disposition: full code. On discharge, patient will need cardiology follow up and a new PCP referral. Visit type - Emergency Visit Emergency Visit: Yes ED Registration Date: 10/07/17 Care time: The patient presented to the Emergency Department on the above date and was hospitalized for further evaluation of their emergent condition. - New Patient This patient is new to me today: No - Critical Care Critical Care patient: No - Discharge Referral Referred to [facility] Med P.C.: Yes Physician Referral: Kingsley Landin MD ([facility])
[2017-10-09] MEDS ORDERED: VANCOMYCIN 1,250 MG in DEXTROSE 5%-WATER - 250 ML IVPB ONE (12:00)
--- NOTE | 2017-10-09 13:45 | CON.ID ---
Consult Consult Specialty:: infectious diseases Reason for Consultation:: fever, - History of Present Illness Chief Complaint: fever,weakness History of Present Illness: 52 year old female of descent with underlying history of open heart surgery last year admitted with palpitations and chest pain.r. She denies shortness of breath. She denies paroxysmal nocturnal dyspnea or orthopnea. . She denies headache or lightheadedness. She also states history of hypertension patient on admission was being followed by cardiology. patient then spiked a high grade temp and i was called to consult on the patient patient currently says that she is feeling well and denies any issues breathing is good - History Source History Provided By: Patient Limitations to Obtaining History: Language Barrier - Past Medical History Cardio/Vascular: Yes: HTN, Other (Valvular heart disease) Endocrine: No: Diabetes Mellitus - Past Surgical History Past Surgical History: Yes: Valve Replacement - Alcohol/Substance Use Hx Alcohol Use: No History of Substance Use: reports: None - Smoking History Smoking history: Never smoked Have you smoked in the past 12 months: No Home Medications - Allergies Allergies/Adverse Reactions: Allergies Allergy/AdvReac Type Severity Reaction Status Date / Time No Known Allergies Allergy Verified 10/07/17 06:29 - Home Medications Home Medications: Ambulatory Orders Digoxin [Lanoxin -] 0.25 mg PO BID 10/07/17 Review of Systems - Review of Systems Constitutional: reports: Fever Eyes: reports: No Symptoms HENT: reports: No Symptoms Neck: reports: No Symptoms Cardiovascular: reports: No Symptoms Respiratory: reports: No Symptoms Gastrointestinal: reports: No Symptoms Genitourinary: reports: No Symptoms Musculoskeletal: reports: No Symptoms Integumentary: reports: No Symptoms Neurological: reports: No Symptoms Endocrine: reports: No Symptoms Hematology/Lymphatic: reports: No Symptoms Psychiatric: reports: No Symptoms Physical Exam Vital Signs: Vital Signs Temperature 98.4 F 10/09/17 06:31 Pulse Rate 85 10/09/17 06:31 Respiratory Rate 18 10/09/17 06:31 Blood Pressure 112/64 10/09/17 06:31 O2 Sat by Pulse Oximetry (%) 98 10/08/17 21:00 Constitutional: Yes: Well Nourished, No Distress, Calm Eyes: Yes: Conjunctiva Clear Cardiovascular: Yes: Tachycardia, Pulse Irregular Respiratory: Yes: Regular, CTA Bilaterally Gastrointestinal: Yes: Normal Bowel Sounds, Soft Musculoskeletal: Yes: WNL Extremities: Yes: WNL Neurological: Yes: Alert, Oriented Psychiatric: Yes: Alert, Oriented Labs: CBC, BMP 10/09/17 06:41 10/09/17 06:41 Imaging - Results Chest X-ray: Report Reviewed, Image Reviewed Assessment/Plan Problem List - Problems (1) Bioprosthetic mitral valve replacement, current hospitalization Code(s): Z95.3 - PRESENCE OF XENOGENIC HEART VALVE (2) HTN (hypertension) Code(s): I10 - ESSENTIAL (PRIMARY) HYPERTENSION Qualifiers: Hypertension type: essential hypertension Qualified Code(s): I10 - Essential (primary) hypertension (3) Hypercholesterolemia Code(s): E78.00 - PURE HYPERCHOLESTEROLEMIA, UNSPECIFIED (4) Tricuspid valve regurgitation Code(s): I07.1 - RHEUMATIC TRICUSPID INSUFFICIENCY Qualifiers: Cardiac valve disease etiology: nonrheumatic Qualified Code(s): I36.1 - Nonrheumatic tricuspid (valve) insufficiency (5) Atrial flutter Code(s): I48.92 - UNSPECIFIED ATRIAL FLUTTER Qualifiers: Atrial flutter type: unspecified Qualified Code(s): I48.92 - Unspecified atrial flutter after looking at the patients history there should be a worry about endo carditis as patient has artificial valve though less plan we will send all the cx echo cardio on ase abx rest continue current mgmt otherwise patient looks stable
[2017-10-09] MEDS ORDERED: PIPERACILLIN/TAZOB 3.375 GM 3.375 GM in DEXTROSE 5%-WATER - 50 ML IVPB ONE (14:00)
[2017-10-09] MEDS ORDERED: WARFARIN NA 5 MG TABLET (UD) PO SCH (18:00)
[2017-10-09] MEDS: ATORVASTATIN CA 20 MG TABLET (FP) PO SCH (22:11)
[2017-10-10 07:07] LABS: BASO % 0.7 % (0-2.0); EOS % 5.7 % (0-4.5); HEMATOCRIT 39.2 % (32.4-45.2); HEMOGLOBIN 13.4 GM/dL (10.7-15.3); LYMPH % 33.9 % (8-40); MCH 30.1 pg (25.7-33.7); MCHC 34.2 g/dl (32.0-36.0); MEAN PLT VOLUME 9.7 fl (7.5-11.1); MONO % 11.8 % (3.8-10.2); NEUT % 47.9 % (42.8-82.8); PLATELET COUNT 209 K/MM3 (134-434); RBC 4.45 M/mm3 (3.60-5.2); RDW 12.6 % (11.6-15.6); WHITE BLOOD COUNT 6.4 K/mm3 (4.0-10.0)
[2017-10-10 07:09] LABS: INR 1.14 (0.82-1.09); PROTHROMBIN TIME (PATIENT) 12.9 SEC (9.98-11.88)
[2017-10-10 07:12] LABS: ACTIVATED PTT 52.7 SECONDS (26.9-34.4)
[2017-10-10 07:39] LABS: CHLORIDE 104 mmol/L (98-107); SODIUM 140 mmol/L (136-145)
[2017-10-10 07:49] LABS: ALBUMIN 3.4 g/dl (3.4-5.0); ALK PHOS 98 U/L (45-117); ANION GAP 10 (8-16); BILIRUBIN,TOTAL 0.6 mg/dL (0.2-1.0); BLOOD UREA NITROGEN 13 mg/dL (7-18); CALCIUM 9.1 mg/dL (8.5-10.1); CO2 26 mmol/L (21-32); CREATININE 0.7 mg/dL (0.55-1.02); GLUCOSE,RANDOM 110 mg/dL (74-106); MAGNESIUM 2.2 mg/dL (1.8-2.4); SGOT/AST 28 U/L (15-37); SGPT/ALT 37 U/L (12-78); TOT PROT 7.7 g/dl (6.4-8.2)
--- NOTE | 2017-10-10 09:57 | PN ---
Progress Note, Physician History of Present Illness: Palpitations and chest pain resolved with rate-control, denies dyspnea, remains on heparin gtt pending therapeutic INR. - Current Medication List Current Medications: Active Medications Acetaminophen (Tylenol -) 650 mg PO Q4H PRN PRN Reason: PAIN OR FEVER Last Admin: 10/08/17 21:43 Dose: 650 mg Atorvastatin Calcium (Lipitor -) 20 mg PO HS [facility] Last Admin: 10/09/17 22:11 Dose: 20 mg Heparin Sodium (Porcine) (Heparin -) 1,000 unit IVPUSH PRN PRN PRN Reason: Heparin Heparin Sodium (Porcine) (Heparin -) 5,000 unit IVPUSH PRN PRN PRN Reason: Heparin Heparin Sodium/Dextrose (Heparin Infusion -) 25,000 units in 500 mls @ 20 mls/ hr IVPB TITR KRYSTAL; 1,000 UNITS/HR PRN Reason: Protocol Last Titration: 10/09/17 14:29 Dose: 1,000 units/hr, 20 mls/hr Metoprolol Tartrate (Lopressor -) 50 mg PO BID [facility] Last Admin: 10/09/17 22:11 Dose: 50 mg Warfarin Sodium (Coumadin -) 5 mg PO DAILY@1800 [facility] Last Admin: 10/09/17 18:13 Dose: 5 mg - Objective Vital Signs: Vital Signs Temperature 98 F 10/10/17 08:10 Pulse Rate 84 10/10/17 08:10 Respiratory Rate 16 10/10/17 08:10 Blood Pressure 130/64 10/10/17 08:10 O2 Sat by Pulse Oximetry (%) 100 10/09/17 21:00 Constitutional: Yes: No Distress, Calm, Thin Neck: Yes: Supple Cardiovascular: Yes: Pulse Irregular, Murmur (2/6 SM) Respiratory: Yes: Regular, Diminished, On Nasal O2 Gastrointestinal: Yes: Normal Bowel Sounds, Soft Edema: No Labs: CBC, BMP 10/10/17 06:25 10/10/17 06:25 INR, PTT INR 1.14 (0.82-1.09) 10/10/17 06:25 - ....Imaging EKG: Report Reviewed (Tele: Afib with RVR) Problem List - Problems (1) Rheumatic heart disease Code(s): I09.9 - RHEUMATIC HEART DISEASE, UNSPECIFIED (2) Atrial flutter Code(s): I48.92 - UNSPECIFIED ATRIAL FLUTTER Qualifiers: Atrial flutter type: unspecified Qualified Code(s): I48.92 - Unspecified atrial flutter (3) Bioprosthetic mitral valve replacement, current hospitalization Code(s): Z95.3 - PRESENCE OF XENOGENIC HEART VALVE (4) HTN (hypertension) Code(s): I10 - ESSENTIAL (PRIMARY) HYPERTENSION Qualifiers: Hypertension type: essential hypertension Qualified Code(s): I10 - Essential (primary) hypertension (5) Hypercholesterolemia Code(s): E78.00 - PURE HYPERCHOLESTEROLEMIA, UNSPECIFIED (6) Rapid atrial fibrillation Code(s): I48.91 - UNSPECIFIED ATRIAL FIBRILLATION (7) Tricuspid valve regurgitation Code(s): I07.1 - RHEUMATIC TRICUSPID INSUFFICIENCY Qualifiers: Cardiac valve disease etiology: rheumatic Qualified Code(s): I07.1 - Rheumatic tricuspid insufficiency Assessment/Plan Echocardiography (10/08/17): Normal LV systolic function, bioprosthetic mitral valve with normal function and well seated, mild MR, severe LA dilatation ( correction in report - LA volume index 56 ml/m2), moderate RA dilatation, moderate to severe TR 1. Atrial flutter/fibrillation with RVR with subtherapeutic INR 2. 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 Hypertension 4. Tricuspid valve regurgitation 5. Hypercholesterolemia PLAN: 1. Heparin gtt -> Coumadin therapy (keep INR 2-3) 2. Increase Metoprolol Tartrate 50 tid. 3. Continue Atorvastatin 20 qhs 4. Unlikely to remain in sinus rhythm post cardioversion given severe LAE and extensive atrial remodeling, will continue rate-control startegy 5. Troponins negative
--- NOTE | 2017-10-10 14:28 | PN ---
Progress Note, Physician History of Present Illness: looks stable no complaints - Current Medication List Current Medications: Active Medications Acetaminophen (Tylenol -) 650 mg PO Q4H PRN PRN Reason: PAIN OR FEVER Last Admin: 10/08/17 21:43 Dose: 650 mg Atorvastatin Calcium (Lipitor -) 20 mg PO HS [facility] Last Admin: 10/09/17 22:11 Dose: 20 mg Heparin Sodium (Porcine) (Heparin -) 1,000 unit IVPUSH PRN PRN PRN Reason: Heparin Heparin Sodium (Porcine) (Heparin -) 5,000 unit IVPUSH PRN PRN PRN Reason: Heparin Heparin Sodium/Dextrose (Heparin Infusion -) 25,000 units in 500 mls @ 20 mls/ hr IVPB TITR KRYSTAL; 1,000 UNITS/HR PRN Reason: Protocol Last Titration: 10/10/17 10:30 Dose: 1,000 units/hr, 20 mls/hr Metoprolol Tartrate (Lopressor -) 50 mg PO TID KRYSTAL Warfarin Sodium (Coumadin -) 5 mg PO DAILY@1800 [facility] Last Admin: 10/09/17 18:13 Dose: 5 mg - Objective Vital Signs: Vital Signs Temperature 98 F 10/10/17 08:10 Pulse Rate 84 10/10/17 08:10 Respiratory Rate 16 10/10/17 08:10 Blood Pressure 130/64 10/10/17 08:10 O2 Sat by Pulse Oximetry (%) 100 10/09/17 21:00 Constitutional: Yes: No Distress, Calm Cardiovascular: Yes: Pulse Irregular Respiratory: Yes: Regular, CTA Bilaterally Gastrointestinal: Yes: Normal Bowel Sounds, Soft Musculoskeletal: Yes: WNL Extremities: Yes: WNL Neurological: Yes: Alert, Oriented Psychiatric: Yes: Alert, Oriented Labs: CBC, BMP 10/10/17 06:25 10/10/17 06:25 INR, PTT INR 1.14 (0.82-1.09) 10/10/17 06:25 Assessment/Plan Problem List - Problems (1) Bioprosthetic mitral valve replacement, current hospitalization Code(s): Z95.3 - PRESENCE OF XENOGENIC HEART VALVE (2) HTN (hypertension) Code(s): I10 - ESSENTIAL (PRIMARY) HYPERTENSION Qualifiers: Hypertension type: essential hypertension Qualified Code(s): I10 - Essential (primary) hypertension (3) Hypercholesterolemia Code(s): E78.00 - PURE HYPERCHOLESTEROLEMIA, UNSPECIFIED (4) Tricuspid valve regurgitation Code(s): I07.1 - RHEUMATIC TRICUSPID INSUFFICIENCY Qualifiers: Cardiac valve disease etiology: nonrheumatic Qualified Code(s): I36.1 - Nonrheumatic tricuspid (valve) insufficiency (5) Atrial flutter Code(s): I48.92 - UNSPECIFIED ATRIAL FLUTTER Qualifiers: Atrial flutter type: unspecified Qualified Code(s): I48.92 - Unspecified atrial flutter fever plan will see the cx reports continue abx for now if everything negative will deescalate rest as per cardio
[2017-10-10] MEDS: METOPROLOL TARTRATE 50 MG TABLET (FP) PO SCH ×2 (14:46→22:33)
--- NOTE | 2017-10-10 15:47 | PN ---
Physical Exam: SUBJECTIVE: Patient seen and examined. No complaints this AM, denies sob, palpitations, bleeding, fever, chills. OBJECTIVE: Vital Signs Period Temp Pulse Resp BP Sys/Paul Pulse Ox Last 24 Hr 98 F-98.8 F 72-92 16-20 102-130/57-68 99-100 PE Neuro: alert, awake, cn 2-12intact Pulm: CTAB CV: s1 s2 irregular rate/rhythm Abd: s nt nd +bs Ext: warm, no le edema Laboratory Results - last 24 hr 10/10/17 10/10/17 10/10/17 06:25 06:25 06:25 WBC 6.4 RBC 4.45 Hgb 13.4 Hct 39.2 MCV 88.0 MCH 30.1 MCHC 34.2 RDW 12.6 Plt Count 209 MPV 9.7 Neutrophils % 47.9 D Lymphocytes % 33.9 D Monocytes % 11.8 H Eosinophils % 5.7 H Basophils % 0.7 PT with INR 12.90 H INR 1.14 PTT (Actin FS) 52.7 H Sodium 140 Potassium 4.0 Chloride 104 Carbon Dioxide 26 Anion Gap 10 BUN 13 Creatinine 0.7 Creat Clearance w eGFR > 60 Random Glucose 110 H Calcium 9.1 Magnesium 2.2 Total Bilirubin 0.6 D AST 28 ALT 37 Alkaline Phosphatase 98 Total Protein 7.7 Albumin 3.4 Active Medications Generic Name Dose Route Start Last Admin Trade Name Freq PRN Reason Stop Dose Admin Acetaminophen 650 mg 10/07/17 11:51 10/08/17 21:43 Tylenol - PO 650 mg Q4H PRN Administration PAIN OR FEVER Atorvastatin Calcium 20 mg 10/08/17 22:00 10/09/17 22:11 Lipitor - PO 20 mg HS KRYSTAL Administration Heparin Sodium (Porcine) 1,000 unit 10/09/17 01:23 Heparin - IVPUSH PRN PRN Heparin Heparin Sodium (Porcine) 5,000 unit 10/09/17 01:23 Heparin - IVPUSH PRN PRN Heparin Heparin Sodium/Dextrose 25,000 units in 500 mls @ 20 mls/hr 10/09/17 01:30 10:30 Heparin Infusion - IVPB 1,000 units/hr TITR KRYSTAL 20 mls/hr Protocol Titration 1,000 UNITS/HR Metoprolol Tartrate 50 mg 10/10/17 14:00 10/10/17 14:46 Lopressor - PO 50 mg TID KRYSTAL Administration Warfarin Sodium 5 mg 10/09/17 18:00 10/09/17 18:13 Coumadin - PO 5 mg DAILY@1800 KRYSTAL Administration Microbiology 10/09/17 14:33 Urine Culture - Final Urine - Urine Clean Catch NO GROWTH OBTAINED 10/09/17 11:36 Blood Culture - Preliminary Blood - Peripheral Venous NO GROWTH OBTAINED AFTER 24 HOURS, INCUBATION TO CONTINUE FOR 4 DAYS. 10/09/17 11:30 Blood Culture - Preliminary Blood - Peripheral Venous NO GROWTH OBTAINED AFTER 24 HOURS, INCUBATION TO CONTINUE FOR 4 DAYS. 10/07/17 08:00 Blood Culture - Preliminary Blood - Peripheral Venous NO GROWTH OBTAINED AFTER 72 HOURS, INCUBATION TO CONTINUE FOR 2 DAYS. 10/07/17 08:00 Blood Culture - Preliminary Blood - Peripheral Venous NO GROWTH OBTAINED AFTER 72 HOURS, INCUBATION TO CONTINUE FOR 2 DAYS. ECHO (10/08/17): Normal LV systolic function, bioprosthetic mitral valve with normal function and well seated, mild MR, severe LA dilatation (correction in report - LA volume index 56 ml/m2), moderate RA dilatation, moderate to severe TR Assessment: 52 year old female with a significant past medical history of paroxysmal afib, thoracotomy, palpitations, recent cardiac surgery in a [facility] a year ago (patient does not remember which hospital) admitted with CP and palpitations found to be in rapid afib. Plan: 1. A fib with RVR - Continue with rate controlling medication, cards deems unlikely candidate to remain in SR after cardioversion - Heparin gtt to coumdin bridge - Increase coumadin 7.5mg - Increased lopressor 25mg TID 2. HTN - Lopressor 3. HLD - Lipitor 20mg 4. Fevers - Empirically treating for infected porcline valve - Continue vanco/zosyn per ID - Lactic acid wnl, cultures negative 5. DVT - On Ac Visit type - Emergency Visit Emergency Visit: Yes ED Registration Date: 10/07/17 Care time: The patient presented to the Emergency Department on the above date and was hospitalized for further evaluation of their emergent condition. - New Patient This patient is new to me today: Yes Date on this admission: 10/10/17 - Critical Care Critical Care patient: No
[2017-10-10] MEDS ORDERED: WARFARIN NA 7.5 MG TABLET (FP) PO SCH (18:00)
[2017-10-10] MEDS ORDERED: VANCOMYCIN 1,250 MG in DEXTROSE 5%-WATER - 250 ML IVPB SCH (18:00)
[2017-10-10] MEDS: PIPERACILLIN/TAZOB 3.375 GM 3.375 GM in DEXTROSE 5%-WATER - 50 ML IVPB SCH (18:25)
[2017-10-10] MEDS: ATORVASTATIN CA 20 MG TABLET (FP) PO SCH (22:33)
[2017-10-11] MEDS: PIPERACILLIN/TAZOB 3.375 GM 3.375 GM in DEXTROSE 5%-WATER - 50 ML IVPB SCH ×3 (01:56→18:30)
[2017-10-11] MEDS: METOPROLOL TARTRATE 50 MG TABLET (FP) PO SCH ×3 (05:53→21:06)
[2017-10-11 06:36] LABS: HEMATOCRIT 41.1 % (32.4-45.2); HEMOGLOBIN 14.2 GM/dL (10.7-15.3); MCH 30.4 pg (25.7-33.7); MCHC 34.6 g/dl (32.0-36.0); MEAN CELL VOLUME 87.9 fl (80-96); MEAN PLT VOLUME 9.8 fl (7.5-11.1); PLATELET COUNT 259 K/MM3 (134-434); RBC 4.67 M/mm3 (3.60-5.2); RDW 12.5 % (11.6-15.6); WHITE BLOOD COUNT 7.2 K/mm3 (4.0-10.0)
[2017-10-11 07:41] LABS: INR 1.14 (0.82-1.09); PROTHROMBIN TIME (PATIENT) 12.9 SEC (9.98-11.88)
[2017-10-11] MEDS ORDERED: PT OWN MED DRAWER 7, Y5N ONE ×3 (08:40→20:43)
[2017-10-11] MEDS: HEPARIN INFUSION - 25,000 UNITS/500 ML INFUS.BAG IVPB SCH (10:07)
--- NOTE | 2017-10-11 12:01 | PN ---
Progress Note, Physician Chief Complaint: Events noted Not in distress History of Present Illness: Patient was seen and examined. Awake and alert. Chart was reviewed Denies chest pain, SOB or palpitations Remains in AF with periods of slow ventricular response - Current Medication List Current Medications: Active Medications Acetaminophen (Tylenol -) 650 mg PO Q4H PRN PRN Reason: PAIN OR FEVER Last Admin: 10/08/17 21:43 Dose: 650 mg Atorvastatin Calcium (Lipitor -) 20 mg PO HS KRYSTAL Last Admin: 10/10/17 22:33 Dose: 20 mg Heparin Sodium (Porcine) (Heparin -) 1,000 unit IVPUSH PRN PRN PRN Reason: Heparin Heparin Sodium (Porcine) (Heparin -) 5,000 unit IVPUSH PRN PRN PRN Reason: Heparin Heparin Sodium/Dextrose (Heparin Infusion -) 25,000 units in 500 mls @ 20 mls/ hr IVPB TITR KRYSTAL; 1,000 UNITS/HR PRN Reason: Protocol Last Admin: 10/11/17 10:07 Dose: 1,000 units/hr, 20 mls/hr Vancomycin HCl 1,250 mg/ (Dextrose) 250 mls @ 166.667 mls/hr IVPB DAILY@1800 KRYSTAL PRN Reason: Protocol Last Admin: 10/10/17 18:26 Dose: 166.667 mls/hr Piperacillin Sod/Tazobactam (Sod 3.375 gm/ Dextrose) 50 mls @ 100 mls/hr IVPB Q8H-IV KRYSTAL PRN Reason: Protocol Last Admin: 10/11/17 10:08 Dose: 100 mls/hr Metoprolol Tartrate (Lopressor -) 50 mg PO TID [facility] Last Admin: 10/11/17 05:53 Dose: 50 mg Warfarin Sodium (Coumadin -) 7.5 mg PO DAILY@1800 KRYSTAL Last Admin: 10/10/17 18:25 Dose: 7.5 mg - Objective Vital Signs: Vital Signs Temperature 98.4 F 10/11/17 02:41 Pulse Rate 71 10/11/17 06:00 Respiratory Rate 20 10/11/17 06:00 Blood Pressure 115/59 10/11/17 06:00 O2 Sat by Pulse Oximetry (%) 95 10/10/17 20:44 HENT: Yes: Atraumatic Neck: Yes: Supple Cardiovascular: Yes: Pulse Irregular, S1, S2 Respiratory: Yes: Diminished Gastrointestinal: Yes: Normal Bowel Sounds, Soft. No: Tenderness Edema: No Additional Findings/Remarks: - Review of Systems Constitutional: denies: Chills, Fever Cardiovascular: denies: Chest Pain, Palpitations. denies: Shortness of Breath Respiratory: denies: Cough, Hemoptysis, Orthopnea, PND, SOB, SOB on Exertion, Wheezing Gastrointestinal: denies: Abdominal Pain, Constipation, Diarrhea, Melena, Nausea , Rectal Bleeding, Vomiting Genitourinary: denies: Dysuria, Hematuria Neurological: denies: Dizziness, Headache, Seizure, Syncope Labs: CBC, BMP 10/11/17 06:15 10/10/17 06:25 INR, PTT INR 1.14 (0.82-1.09) 10/11/17 06:15 Problem List - Problems (1) Bioprosthetic mitral valve replacement, current hospitalization Code(s): Z95.3 - PRESENCE OF XENOGENIC HEART VALVE (2) HTN (hypertension) Code(s): I10 - ESSENTIAL (PRIMARY) HYPERTENSION Qualifiers: Hypertension type: essential hypertension Qualified Code(s): I10 - Essential (primary) hypertension (3) Hypercholesterolemia Code(s): E78.00 - PURE HYPERCHOLESTEROLEMIA, UNSPECIFIED (4) Tricuspid valve regurgitation Code(s): I07.1 - RHEUMATIC TRICUSPID INSUFFICIENCY Qualifiers: Cardiac valve disease etiology: rheumatic Qualified Code(s): I07.1 - Rheumatic tricuspid insufficiency (5) Atrial flutter Code(s): I48.92 - UNSPECIFIED ATRIAL FLUTTER Qualifiers: Atrial flutter type: unspecified Qualified Code(s): I48.92 - Unspecified atrial flutter Assessment/Plan Echocardiography (10/08/17): Normal LV systolic function, bioprosthetic mitral valve with normal function and well seated, mild MR, severe LA dilatation ( correction in report - LA volume index 56 ml/m2), moderate RA dilatation, moderate to severe TR 1. Atrial fibrillation/flutter with variable ventricular response, unknown duration 2. Post bioprosthetic MVR with mild mitral valve regurgitation - suggest possible history of rheumatic heart disease 3. History of hypertension 4. Tricuspid valve regurgitation 5. Hypercholesterolemia PLAN: 1. Continue Coumadin dosing to keep INR 2-3 2. Continue Metoprolol Tartrate - monitor on telemetry 3. Continue Atorvastatin 4. In view of severe LA dilatation, would pose difficulty in maintaining sinus rhythm, therefore, would continue rate control management Further plans are to follow Noah Mccoy MD
--- NOTE | 2017-10-11 13:11 | PN ---
Progress Note, Physician History of Present Illness: patient stable no complaints afebrile still in afib - Current Medication List Current Medications: Active Medications Acetaminophen (Tylenol -) 650 mg PO Q4H PRN PRN Reason: PAIN OR FEVER Last Admin: 10/08/17 21:43 Dose: 650 mg Atorvastatin Calcium (Lipitor -) 20 mg PO HS KRYSTAL Last Admin: 10/10/17 22:33 Dose: 20 mg Heparin Sodium (Porcine) (Heparin -) 1,000 unit IVPUSH PRN PRN PRN Reason: Heparin Heparin Sodium (Porcine) (Heparin -) 5,000 unit IVPUSH PRN PRN PRN Reason: Heparin Heparin Sodium/Dextrose (Heparin Infusion -) 25,000 units in 500 mls @ 20 mls/ hr IVPB TITR KRYSTAL; 1,000 UNITS/HR PRN Reason: Protocol Last Admin: 10/11/17 10:07 Dose: 1,000 units/hr, 20 mls/hr Piperacillin Sod/Tazobactam (Sod 3.375 gm/ Dextrose) 50 mls @ 100 mls/hr IVPB Q8H-IV KYRSTAL PRN Reason: Protocol Last Admin: 10/11/17 10:08 Dose: 100 mls/hr Metoprolol Tartrate (Lopressor -) 50 mg PO TID [facility] Last Admin: 10/11/17 05:53 Dose: 50 mg Warfarin Sodium (Coumadin -) 7.5 mg PO DAILY@1800 KRYSTAL Last Admin: 10/10/17 18:25 Dose: 7.5 mg Warfarin Sodium (Coumadin -) 10 mg PO ONCE@1800 ONE Stop: 10/11/17 18:01 - Objective Vital Signs: Vital Signs Temperature 98.4 F 10/11/17 02:41 Pulse Rate 71 10/11/17 06:00 Respiratory Rate 20 10/11/17 06:00 Blood Pressure 115/59 10/11/17 06:00 O2 Sat by Pulse Oximetry (%) 95 10/10/17 20:44 Constitutional: Yes: No Distress, Calm Cardiovascular: Yes: Pulse Irregular Respiratory: Yes: Regular, CTA Bilaterally Gastrointestinal: Yes: Normal Bowel Sounds, Soft. No: Tenderness Genitourinary: No: CVA Tenderness - Left, CVA Tenderness - Right Musculoskeletal: Yes: WNL Extremities: Yes: WNL Neurological: Yes: Alert, Oriented Psychiatric: Yes: Alert, Oriented Labs: CBC, BMP 10/11/17 06:15 10/10/17 06:25 INR, PTT INR 1.14 (0.82-1.09) 10/11/17 06:15 Assessment/Plan Problem List - Problems (1) Bioprosthetic mitral valve replacement, current hospitalization Code(s): Z95.3 - PRESENCE OF XENOGENIC HEART VALVE (2) HTN (hypertension) Code(s): I10 - ESSENTIAL (PRIMARY) HYPERTENSION Qualifiers: Hypertension type: essential hypertension Qualified Code(s): I10 - Essential (primary) hypertension (3) Hypercholesterolemia Code(s): E78.00 - PURE HYPERCHOLESTEROLEMIA, UNSPECIFIED (4) Tricuspid valve regurgitation Code(s): I07.1 - RHEUMATIC TRICUSPID INSUFFICIENCY Qualifiers: Cardiac valve disease etiology: nonrheumatic Qualified Code(s): I36.1 - Nonrheumatic tricuspid (valve) insufficiency (5) Atrial flutter Code(s): I48.92 - UNSPECIFIED ATRIAL FLUTTER Qualifiers: Atrial flutter type: unspecified Qualified Code(s): I48.92 - Unspecified atrial flutter fever plan aly stop vanco continue zosyn for now rest continue current mgmt rest as per primary
--- NOTE | 2017-10-11 16:46 | PN ---
Physical Exam: SUBJECTIVE: Patient seen and examined. No acute issues. Tele: - Afib OBJECTIVE: Vital Signs Period Temp Pulse Resp BP Sys/Paul Pulse Ox Last 24 Hr 98 F-98.4 F 71-78 20-20 106-122/50-67 95 PE Neuro: alert, awake, cn 2-12intact Pulm: CTAB CV: s1 s2 irregular rate/rhythm Abd: s nt nd +bs Ext: warm, no le edema Laboratory Results - last 24 hr 10/11/17 10/11/17 10/11/17 06:15 06:15 06:15 WBC 7.2 RBC 4.67 Hgb 14.2 Hct 41.1 MCV 87.9 MCH 30.4 MCHC 34.6 RDW 12.5 Plt Count 259 D MPV 9.8 PT with INR 12.90 H INR 1.14 PTT (Actin FS) 51.2 H Active Medications Generic Name Dose Route Start Last Admin Trade Name Freq PRN Reason Stop Dose Admin Acetaminophen 650 mg 10/07/17 11:51 10/08/17 21:43 Tylenol - PO 650 mg Q4H PRN Administration PAIN OR FEVER Atorvastatin Calcium 20 mg 10/08/17 22:00 10/10/17 22:33 Lipitor - PO 20 mg HS KRYSTAL Administration Heparin Sodium (Porcine) 1,000 unit 10/09/17 01:23 Heparin - IVPUSH PRN PRN Heparin Heparin Sodium (Porcine) 5,000 unit 10/09/17 01:23 Heparin - IVPUSH PRN PRN Heparin Heparin Sodium/Dextrose 25,000 units in 500 mls @ 20 mls/hr 10/09/17 01:30 10:07 Heparin Infusion - IVPB 1,000 units/hr TITR KRYSTAL 20 mls/hr Protocol Administration 1,000 UNITS/HR Piperacillin Sod/Tazobactam 50 mls @ 100 mls/hr 10/10/17 18:00 10/11/17 10:08 Sod 3.375 gm/ Dextrose IVPB 100 mls/hr Q8H-IV KRYSTAL Administration Protocol Metoprolol Tartrate 50 mg 10/10/17 14:00 10/11/17 14:56 Lopressor - PO 50 mg TID KRYSTAL Administration Warfarin Sodium 7.5 mg 10/10/17 18:00 10/10/17 18:25 Coumadin - PO 7.5 mg DAILY@1800 KRYSTAL Administration Warfarin Sodium 10 mg 10/11/17 18:00 Coumadin - PO 10/11/17 18:01 ONCE@1800 ONE Imaging: - ECHO (10/08/17): Normal LV systolic function, bioprosthetic mitral valve with normal function and well seated, mild MR, severe LA dilatation (correction in report - LA volume index 56 ml/m2), moderate RA dilatation, moderate to severe TR Assessment: 52 year old female with a significant past medical history of paroxysmal afib, thoracotomy, palpitations, recent cardiac surgery in a [facility] a year ago (patient does not remember which hospital) admitted with CP and palpitations found to be in rapid afib. Plan: 1. A fib with RVR - Per cards, unlikely candidate to remain in SR after cardioversion, plan to rate control with meds - Heparin gtt to coumdin bridge - Increase Coumadin 10mg - Increase lopressor 50mg TID 2. HTN - Lopressor 3. HLD - Lipitor 20mg 4. Fevers - Empirically treating for infected porcline valve - Stop vanco today - Continue zosyn per ID 5. DVT - On AC Visit type - Emergency Visit Emergency Visit: Yes ED Registration Date: 10/07/17 Care time: The patient presented to the Emergency Department on the above date and was hospitalized for further evaluation of their emergent condition. - New Patient This patient is new to me today: No - Critical Care Critical Care patient: No
[2017-10-11] MEDS ORDERED: WARFARIN NA 10 MG TABLET (FP) PO ONE (18:00)
[2017-10-11] MEDS ORDERED: WARFARIN NA 10 MG TABLET (FP) PO SCH (18:00)
[2017-10-11] MEDS: ATORVASTATIN CA 20 MG TABLET (FP) PO SCH (21:06)
[2017-10-12] MEDS: PIPERACILLIN/TAZOB 3.375 GM 3.375 GM in DEXTROSE 5%-WATER - 50 ML IVPB SCH ×2 (02:08→10:21)
[2017-10-12] MEDS: METOPROLOL TARTRATE 50 MG TABLET (FP) PO SCH ×2 (05:32→13:49)
[2017-10-12 07:24] LABS: HEMATOCRIT 39.3 % (32.4-45.2); HEMOGLOBIN 13.2 GM/dL (10.7-15.3); MCH 29.6 pg (25.7-33.7); MCHC 33.6 g/dl (32.0-36.0); MEAN PLT VOLUME 9.4 fl (7.5-11.1); PLATELET COUNT 234 K/MM3 (134-434); RBC 4.47 M/mm3 (3.60-5.2); RDW 12.7 % (11.6-15.6); WHITE BLOOD COUNT 7.4 K/mm3 (4.0-10.0)
[2017-10-12] MEDS ORDERED: PT OWN MED DRAWER 7, Y5N ONE ×2 (07:28→09:53)
[2017-10-12 07:39] LABS: INR 2.27 (0.82-1.09); PROTHROMBIN TIME (PATIENT) 25.6 SEC (9.98-11.88)
--- NOTE | 2017-10-12 08:21 | PN ---
Progress Note, Physician History of Present Illness: Palpitations and chest pain resolved with rate-control, denies dyspnea, therapeutic INR achieved. - Current Medication List Current Medications: Active Medications Acetaminophen (Tylenol -) 650 mg PO Q4H PRN PRN Reason: PAIN OR FEVER Last Admin: 10/08/17 21:43 Dose: 650 mg Atorvastatin Calcium (Lipitor -) 20 mg PO HS KRYSTAL Last Admin: 10/11/17 21:06 Dose: 20 mg Heparin Sodium (Porcine) (Heparin -) 1,000 unit IVPUSH PRN PRN PRN Reason: Heparin Heparin Sodium (Porcine) (Heparin -) 5,000 unit IVPUSH PRN PRN PRN Reason: Heparin Heparin Sodium/Dextrose (Heparin Infusion -) 25,000 units in 500 mls @ 20 mls/ hr IVPB TITR KRYSTAL; 1,000 UNITS/HR PRN Reason: Protocol Last Admin: 10/11/17 10:07 Dose: 1,000 units/hr, 20 mls/hr Piperacillin Sod/Tazobactam (Sod 3.375 gm/ Dextrose) 50 mls @ 100 mls/hr IVPB Q8H-IV KRYSTAL PRN Reason: Protocol Last Admin: 10/12/17 02:08 Dose: 100 mls/hr Metoprolol Tartrate (Lopressor -) 50 mg PO TID [facility] Last Admin: 10/12/17 05:32 Dose: 50 mg Warfarin Sodium (Coumadin -) 10 mg PO DAILY@1800 KRYSTAL Last Admin: 10/11/17 18:31 Dose: 10 mg - Objective Vital Signs: Vital Signs Temperature 98.2 F 10/12/17 02:00 Pulse Rate 85 10/12/17 06:35 Respiratory Rate 20 10/12/17 06:35 Blood Pressure 107/71 10/12/17 06:35 O2 Sat by Pulse Oximetry (%) 95 10/11/17 09:00 Constitutional: Yes: No Distress, Calm, Thin Neck: Yes: Supple Cardiovascular: Yes: Pulse Irregular Respiratory: Yes: Regular, Diminished Gastrointestinal: Yes: Normal Bowel Sounds, Soft Edema: No Labs: CBC, BMP 10/12/17 07:10 10/10/17 06:25 INR, PTT INR 2.27 (0.82-1.09) H D 10/12/17 07:10 - ....Imaging EKG: Report Reviewed (Rate-controlled afib) Problem List - Problems (1) Rheumatic heart disease Code(s): I09.9 - RHEUMATIC HEART DISEASE, UNSPECIFIED (2) Atrial flutter Code(s): I48.92 - UNSPECIFIED ATRIAL FLUTTER Qualifiers: Atrial flutter type: unspecified Qualified Code(s): I48.92 - Unspecified atrial flutter (3) Bioprosthetic mitral valve replacement, current hospitalization Code(s): Z95.3 - PRESENCE OF XENOGENIC HEART VALVE (4) HTN (hypertension) Code(s): I10 - ESSENTIAL (PRIMARY) HYPERTENSION Qualifiers: Hypertension type: essential hypertension Qualified Code(s): I10 - Essential (primary) hypertension (5) Hypercholesterolemia Code(s): E78.00 - PURE HYPERCHOLESTEROLEMIA, UNSPECIFIED (6) Rapid atrial fibrillation Code(s): I48.91 - UNSPECIFIED ATRIAL FIBRILLATION (7) Tricuspid valve regurgitation Code(s): I07.1 - RHEUMATIC TRICUSPID INSUFFICIENCY Qualifiers: Cardiac valve disease etiology: rheumatic Qualified Code(s): I07.1 - Rheumatic tricuspid insufficiency Assessment/Plan Echocardiography (10/08/17): Normal LV systolic function, bioprosthetic mitral valve with normal function and well seated, mild MR, severe LA dilatation ( correction in report - LA volume index 56 ml/m2), moderate RA dilatation, moderate to severe TR 1. Atrial fibrillation/flutter with variable ventricular response now with therapeutic INR 2. Post bioprosthetic MVR with mild mitral valve regurgitation - suggest possible history of rheumatic heart disease 3. History of hypertension 4. Tricuspid valve regurgitation 5. Hypercholesterolemia PLAN: 1. Continue Coumadin dosing to keep INR 2-3, d/c heparin gtt 2. Continue Metoprolol Tartrate 50 TID 3. Continue Atorvastatin 20 QHS 4. In view of severe LA dilatation, would pose difficulty in maintaining sinus rhythm, therefore, would continue rate control management 5. May d/c from CV -standpoint with f/u and INR checks in clinic.
[2017-10-12] MEDS ORDERED: WARFARIN NA 5 MG TABLET (UD) PO SCH (08:29)
--- NOTE | 2017-10-12 10:51 | PN ---
Physical Exam: SUBJECTIVE: Patient seen and examined. No acute issues. Lino cp, sob, palpations OBJECTIVE: Vital Signs Period Temp Pulse Resp BP Sys/Paul Pulse Ox Last 24 Hr 98 F-99.4 F 71-85 20-20 101-122/58-71 PE Neuro: alert, awake, cn 2-12intact Pulm: CTAB CV: s1 s2 irregular rate/rhythm Abd: s nt nd +bs Ext: warm, no le edema Laboratory Results - last 24 hr 10/12/17 10/12/17 10/12/17 07:10 07:10 07:10 WBC 7.4 RBC 4.47 Hgb 13.2 Hct 39.3 MCV 88.0 MCH 29.6 MCHC 33.6 RDW 12.7 Plt Count 234 MPV 9.4 PT with INR 25.60 H INR 2.27 H D PTT (Actin FS) 71.5 H D Active Medications Generic Name Dose Route Start Last Admin Trade Name Freq PRN Reason Stop Dose Admin Acetaminophen 650 mg 10/07/17 11:51 10/08/17 21:43 Tylenol - PO 650 mg Q4H PRN Administration PAIN OR FEVER Atorvastatin Calcium 20 mg 10/08/17 22:00 10/11/17 21:06 Lipitor - PO 20 mg HS KRYSTAL Administration Piperacillin Sod/Tazobactam 50 mls @ 100 mls/hr 10/10/17 18:00 10/12/17 10:21 Sod 3.375 gm/ Dextrose IVPB 100 mls/hr Q8H-IV KRYSTAL Administration Protocol Metoprolol Tartrate 50 mg 10/10/17 14:00 10/12/17 05:32 Lopressor - PO 50 mg TID KRYSTAL Administration Warfarin Sodium 5 mg 10/12/17 08:29 Coumadin - PO DAILY@1800 [facility] Imaging: - ECHO (10/08/17): Normal LV systolic function, bioprosthetic mitral valve with normal function and well seated, mild MR, severe LA dilatation (correction in report - LA volume index 56 ml/m2), moderate RA dilatation, moderate to severe TR Assessment: 52 year old female with a significant past medical history of paroxysmal afib, thoracotomy, palpitations, recent cardiac surgery in a [facility] a year ago (patient does not remember which hospital) admitted with CP and palpitations found to be in rapid afib. Plan: 1. A fib with RVR - Per cards, unlikely candidate to remain in SR after cardioversion, plan to rate control with meds - INR thereptuic - Change coumadin 5mg - Stop heparin gtt - Monitor INR, will need clinic visits to check - Continue Lopressor 50mg TID 2. HTN - Lopressor 50mg TID 3. HLD - Lipitor 20mg 4. Fevers - Empirically treating for infected porcline valve - Stop vanco 10/11 - Continue zosyn per ID - Transition to oral per ID 5. DVT - On AC
--- NOTE | 2017-10-12 14:13 | PN ---
Progress Note, Physician History of Present Illness: stable doing well - Current Medication List Current Medications: Active Medications Acetaminophen (Tylenol -) 650 mg PO Q4H PRN PRN Reason: PAIN OR FEVER Last Admin: 10/08/17 21:43 Dose: 650 mg Atorvastatin Calcium (Lipitor -) 20 mg PO HS KRYSTAL Last Admin: 10/11/17 21:06 Dose: 20 mg Piperacillin Sod/Tazobactam (Sod 3.375 gm/ Dextrose) 50 mls @ 100 mls/hr IVPB Q8H-IV KRYSTAL PRN Reason: Protocol Last Admin: 10/12/17 10:21 Dose: 100 mls/hr Metoprolol Tartrate (Lopressor -) 50 mg PO TID KRYSTAL Last Admin: 10/12/17 13:49 Dose: 50 mg Warfarin Sodium (Coumadin -) 5 mg PO DAILY@1800 [facility] - Objective Vital Signs: Vital Signs Temperature 98 F 10/12/17 10:00 Pulse Rate 84 10/12/17 10:00 Respiratory Rate 18 10/12/17 10:00 Blood Pressure 100/58 10/12/17 10:00 O2 Sat by Pulse Oximetry (%) 95 10/12/17 09:00 Constitutional: Yes: No Distress, Calm Cardiovascular: Yes: Pulse Irregular Respiratory: Yes: Regular, CTA Bilaterally Gastrointestinal: Yes: Normal Bowel Sounds, Soft Musculoskeletal: Yes: WNL Extremities: Yes: WNL Neurological: Yes: Alert, Oriented Psychiatric: Yes: Alert, Oriented Labs: CBC, BMP 10/12/17 07:10 10/10/17 06:25 INR, PTT INR 2.27 (0.82-1.09) H D 10/12/17 07:10 Assessment/Plan Problem List - Problems (1) Bioprosthetic mitral valve replacement, current hospitalization Code(s): Z95.3 - PRESENCE OF XENOGENIC HEART VALVE (2) HTN (hypertension) Code(s): I10 - ESSENTIAL (PRIMARY) HYPERTENSION Qualifiers: Hypertension type: essential hypertension Qualified Code(s): I10 - Essential (primary) hypertension (3) Hypercholesterolemia Code(s): E78.00 - PURE HYPERCHOLESTEROLEMIA, UNSPECIFIED (4) Tricuspid valve regurgitation Code(s): I07.1 - RHEUMATIC TRICUSPID INSUFFICIENCY Qualifiers: Cardiac valve disease etiology: nonrheumatic Qualified Code(s): I36.1 - Nonrheumatic tricuspid (valve) insufficiency (5) Atrial flutter Code(s): I48.92 - UNSPECIFIED ATRIAL FLUTTER Qualifiers: Atrial flutter type: unspecified Qualified Code(s): I48.92 - Unspecified atrial flutter fever plan can change zosyn to augmentin give it for another 4 days
[2017-10-12 15:02] VITALS: BP 123/78; PULSE 90; TEMP 98.3
--- NOTE | 2017-10-12 15:23 | DS ---
Physical Exam: SUBJECTIVE: Patient seen and examined OBJECTIVE: Vital Signs Period Temp Pulse Resp BP Sys/Paul Pulse Ox Last 24 Hr 98 F-99.4 F 71-90 18-20 100-123/58-78 95 PE Neuro: alert, awake, cn 2-12intact Pulm: CTAB CV: s1 s2 irregular rate/rhythm Abd: s nt nd +bs Ext: warm, no le edema Laboratory Results - last 24 hr 10/12/17 10/12/17 10/12/17 07:10 07:10 07:10 WBC 7.4 RBC 4.47 Hgb 13.2 Hct 39.3 MCV 88.0 MCH 29.6 MCHC 33.6 RDW 12.7 Plt Count 234 MPV 9.4 PT with INR 25.60 H INR 2.27 H D PTT (Actin FS) 71.5 H D HOSPITAL COURSE: Date of Admission:10/07/17 Date of Discharge: 10/12/17 Minutes to complete discharge: 37 Discharge Summary Reason For Visit: ATRIAL FLUTTER/SEPSIS/RAPID ATRIAL FIBRILLATION Current Active Problems Atrial flutter (Acute) Bioprosthetic mitral valve replacement, current hospitalization (Acute) HTN (hypertension) (Acute) Hypercholesterolemia (Acute) Rapid atrial fibrillation (Acute) Rheumatic heart disease (Acute) Sepsis (Acute) Tricuspid valve regurgitation (Acute) Hospital Course: Initial Hospital Course: Briefly, this 52 year old female with PMH valve replacement 04/2016 at [place] who [place] presented for care after experiencing palpitations and chest pain while asleep. She described the pain as a pounding rated 8/10. Imaging: - ECHO (10/08/17): Normal LV systolic function, bioprosthetic mitral valve with normal function and well seated, mild MR, severe LA dilatation (correction in report - LA volume index 56 ml/m2), moderate RA dilatation, moderate to severe TR Subsequent Hospital Course/Progress Note/DC summary: Assessment: 52 year old female with a significant past medical history of paroxysmal afib, thoracotomy, palpitations, recent cardiac surgery in a [facility] a year ago (patient does not remember which hospital) admitted with CP and palpitations found to be in rapid afib. Plan: 1. A fib with RVR - Per cards, unlikely candidate to remain in SR after cardioversion, plan to rate control with meds - s/p heparin coumadin gtt - Home with coumadin 5mg - Continue Lopressor 50mg TID - INR checks with Dr. Paez office, appt Sunday at 2.30pm, enclosed in dc paper work, son aware 2. HTN - Lopressor 50mg TID 3. HLD - Lipitor 20mg 4. Fevers - Empirically treating for infected porcline valve - S/p course vanco/zosyn - Home with augmentin 875mg BID x5days Dispo: - Home with above plan and pcp follow up Condition: Stable - Instructions Diet, Activity, Other Instructions: Please return to the ED for any new, persistent, or worsening symptoms. Follow up with your PCP in 1 week Take new home medications as directed on discharge list Follow with [facility] every week for INR check. Goal INR 2-3 Referrals: Trey Caba MD [Staff Physician] - Kingsley Lanza MD [Staff Physician] - Disposition: HOME - Home Medications Comprehensive Discharge Medication List: Ambulatory Orders Amoxicillin/Potassium Clav [Augmentin 875-125 Tablet] 1 each PO BID #10 tablet 10/12/17 Atorvastatin Ca [Lipitor] 20 mg PO HS #30 tablet 10/12/17 Metoprolol Tartrate [Lopressor -] 50 mg PO TID #90 tablet 10/12/17 Warfarin Na [Coumadin] 5 mg PO DAILY@1800 #30 tablet 10/12/17 This patient is new to me today: No Emergency Visit: Yes ED Registration Date: 10/07/17 Care time: The patient presented to the Emergency Department on the above date and was hospitalized for further evaluation of their emergent condition. Critical Care patient: No - Discharge Referral Referred to [facility] Yes Physician Referral: Kingsley Landin MD ([facility])
== END 2017-10-12 17:33 | disposition home or self-care (01) | DRG 201 ==
LOC: JER 05:47 → JERBED 11:38 → J4W 10-08 13:40
PROVIDERS: ADMIT Internal Medicine; ATTEND Nurse Practitioner Acute Care
DX: I48.92 Unspecified atrial flutter (principal); R07.9 Chest pain, unspecified; D72.829 Elevated white blood cell count, unspecified; I48.91 Unspecified atrial fibrillation; I10 Essential (primary) hypertension; I36.1 Nonrheumatic tricuspid (valve) insufficiency; Z95.3 Presence of xenogenic heart valve; E78.5 Hyperlipidemia, unspecified; E87.2 Acidosis
CPT/HCPCS: 36415; 71045-TC-FY; 80053; 80061; 81003; 81015; 82550; 82803; 83605; 83721; 83735; 83880; 84443; 84484; 85025; 85027; 85610; 85730; 86850; 86900; 86901; 87040; 87086; 87804; 87899; 93005; 93010; 93306-TC; 99285-25; J1644